=== PATIENT | female | born 1990 | race Two or more races ===

== ENCOUNTER 2019-12-03 10:40 | Emergency (ER) | payer SELFPAY ==
[~2019-12-03] VITALS: Ht 165.1 cm; Wt 109.0 kg
[2019-12-03 12:58] VITALS: BP 140/87
== END 2019-12-03 13:02 | disposition home or self-care (01) ==
LOC: ER 10:40
DX: Z03.818 Encounter for observation for suspected exposure to other biological agents ruled out (principal); Z90.49 Acquired absence of other specified parts of digestive tract; F17.290 Nicotine dependence, other tobacco product, uncomplicated
CPT/HCPCS: 99283; U0003

== ENCOUNTER → 2019-12-06 | Outpatient (CLI) | payer OTHER | END | disposition home or self-care (01) | LOC: LAB 15:24 | PROVIDERS: ATTEND Family Medicine Adult Medicine | DX: Z03.818 Encounter for observation for suspected exposure to other biological agents ruled out (principal); Z20.828 Contact with and (suspected) exposure to other viral communicable diseases | CPT/HCPCS: U0003-CS ==